=== PATIENT | female | born 1985 | race American Indian/Alaskan Native ===

== ENCOUNTER 2017-09-22 12:59 | Emergency (ER) | payer BC ==
[2017-09-22] MEDS ORDERED: ATIVAN PO ONE (13:53)
--- NOTE | 2017-09-22 14:00 | Emergency Department Report ---
ED Shortness of Breath HPI - General Chief Complaint: Anxiety Stated Complaint: SOB Time Seen by Provider: 09/22/17 13:52 Source: patient Mode of arrival: Ambulatory Limitations: No Limitations - History of Present Illness Initial Comments: Pt endorses that she has allergy problems and takes an antihistamine but still cannot breathe through her nose. Reports that she began to breathe through her mouth but then felt short of breath. States that she then began to feel tingling all over her body and like she was going to pass out. Also reports [place] during that time. Feels a little bit better now. Denies past history. Denies CP , abdominal pain, n/v. Complaint: shortness of breath -: Sudden, hour(s) Severity: moderate Consistency: constant Improves With: nothing Worsens With: nothing Context: recent URI Associated Symptoms: cough Treatments Prior to Arrival: none - Related Data Previous Rx's Medication Instructions Recorded Last Taken Type Fluticasone [Flonase] 2 spray NS QDAY #1 bottle 09/22/17 Unknown Rx LORazepam [Ativan] 1 mg PO TID PRN #9 tablet 09/22/17 Unknown Rx Allergies Allergy/AdvReac Type Severity Reaction Status Date / Time No Known Allergies Allergy Unverified 09/22/17 13:13 ED Review of Systems ROS: Stated complaint: SOB Other details as noted in HPI Comment: All other systems reviewed and negative Constitutional: denies: chills, fever Eyes: denies: eye pain, eye discharge, vision change ENT: congestion. denies: ear pain, throat pain Respiratory: cough, shortness of breath. denies: wheezing Cardiovascular: denies: chest pain, palpitations Endocrine: no symptoms reported Gastrointestinal: denies: abdominal pain, nausea, diarrhea Genitourinary: denies: urgency, dysuria, discharge Musculoskeletal: denies: back pain, joint swelling, arthralgia Skin: denies: rash, lesions Neurological: denies: headache, weakness, paresthesias Psychiatric: denies: anxiety, depression Hematological/Lymphatic: denies: easy bleeding, easy bruising ED Past Medical Hx - Past Medical History Previous Medical History?: No - Surgical History Past Surgical History?: No - Social History Smoking Status: Never Smoker Substance Use Type: None - Medications Home Medications: Home Medications Medication Instructions Recorded Confirmed Last Taken Type Fluticasone [Flonase] 2 spray NS QDAY #1 bottle 09/22/17 Unknown Rx LORazepam [Ativan] 1 mg PO TID PRN #9 tablet 09/22/17 Unknown Rx ED Physical Exam - General Limitations: No Limitations General appearance: alert, in no apparent distress - Head Head exam: Present: atraumatic, normocephalic - Eye Eye exam: Present: normal appearance, PERRL, EOMI Pupils: Present: normal accommodation - ENT ENT exam: Present: normal exam, normal orophraynx, mucous membranes moist - Neck Neck exam: Present: normal inspection - Respiratory Respiratory exam: Present: normal lung sounds bilaterally. Absent: respiratory distress - Cardiovascular Cardiovascular Exam: Present: regular rate, normal rhythm. Absent: systolic murmur, diastolic murmur, rubs, gallop - GI/Abdominal GI/Abdominal exam: Present: soft, normal bowel sounds - Extremities Exam Extremities exam: Present: normal inspection - Back Exam Back exam: Present: normal inspection - Neurological Exam Neurological exam: Present: alert, oriented X3 - Psychiatric Psychiatric exam: Present: normal affect, normal mood - Skin Skin exam: Present: warm, dry, intact, normal color. Absent: rash ED Course Vital Signs 09/22/17 09/22/17 13:09 16:51 Temperature 98 F 98.5 F Pulse Rate 116 H 109 H Respiratory 20 20 Rate Blood Pressure 122/82 Blood Pressure 115/68 [Right] O2 Sat by Pulse 100 100 Oximetry - Reevaluation(s) Reevaluation #1: 09/22/17 15:29 Pt reports that other than sinus drainage, she is feeling better. Reevaluation #2: 09/22/17 17:42 Pt stable for d/c. No current complaints. ED Medical Decision Making - Lab Data Result diagrams: 09/22/17 14:01 09/22/17 14:01 - Radiology Data Radiology results: report reviewed normal chest xray - Medical Decision Making Pt presents with apparent anxiety attack due to globus sensation, secondary to postnasal drip. Labs unremarkable outside of mildly decreased K and Na. D-dimer < 250, PE unlikely. Sx resolved with Ativan PO and K+ was replaced. At this time , patient has no further complaints and is stable for d/c to follow with PCP. - Differential Diagnosis sinusitis, allergic rhinitis/pnd, anxiety, pe unlikely Critical care attestation.: If time is entered above; I have spent that time in minutes in the direct care of this critically ill patient, excluding procedure time. ED Disposition Clinical Impression: Panic attack, Hypokalemia, Postnasal discharge Disposition: TO HOME OR SELFCARE Is pt being admited?: No Condition: Good Instructions: Allergic Rhinitis (ED), Anxiety (ED) Prescriptions: Fluticasone [Flonase] 2 spray NS QDAY #1 bottle LORazepam [Ativan] 1 mg PO TID PRN #9 tablet PRN Reason: Anxiety Referrals: EDIN MUÑIZ MD [Primary Care Provider] - 3-5 Days Time of Disposition: 17:43
[2017-09-22 14:22] LABS: Basophils # (Auto) 0.1 K/mm3 (0.0-0.1); Basophils % (Auto) 1.9 % (0.0-1.8); Eosinophils % (Auto) 0.5 % (0.0-4.3); Hematocrit 40.6 % (30.3-42.9); Hemoglobin 13.6 gm/dl (10.1-14.3); Lymphocytes # (Auto) 1.4 K/mm3 (1.2-5.4); Lymphocytes % (Auto) 27.4 % (13.4-35.0); Mean Corpuscular HGB Conc 34 % (30-34); Mean Corpuscular Hemoglobin 29 pg (28-32); Mean Corpuscular Volume 86 fl (79-97); Monocytes # (Auto) 0.4 K/mm3 (0.0-0.8); Monocytes % (Auto) 7.4 % (0.0-7.3); Platelet Count 375 K/mm3 (140-440); Red Blood Count 4.75 M/mm3 (3.65-5.03); Red Cell Distribution Width 15.5 % (13.2-15.2)
[2017-09-22 14:30] LABS: INR 0.9 (0.87-1.13)
[2017-09-22 14:31] LABS: Partial Thromboplastin Time 27.2 Sec. (24.2-36.6)
[2017-09-22 14:32] LABS: Alanine Aminotransferase 11 units/L (7-56); Albumin 4.2 g/dL (3.9-5); BUN/Creatinine Ratio 15; Blood Urea Nitrogen 9 mg/dL (7-17); Calcium 9.4 mg/dL (8.4-10.2); Hemolysis Index 8
--- NOTE | 2017-09-22 15:18 | XRay Report ---
FINAL REPORT EXAM: XR CHEST ROUTINE 2V HISTORY: sob TECHNIQUE: PA and lateral views of the chest were submitted. FINDINGS: The heart size and mediastinum appear normal. The lungs are clear. Pleural fluid is not seen. The bones soft tissues are well maintained. IMPRESSION: No active chest disease.
[2017-09-22] MEDS ORDERED: K-DUR PO ONE (15:30)
[2017-09-22 16:52] VITALS: BP 115/68
== END 2017-09-22 18:09 | disposition home or self-care (01) ==
LOC: ED 12:59
DX: F41.0 Panic disorder [episodic paroxysmal anxiety] (principal); E87.6 Hypokalemia; R09.89 Other specified symptoms and signs involving the circulatory and respiratory systems
CPT/HCPCS: 36415; 71046; 80053; 82962; 84703; 85025; 85379; 85610; 85730